=== PATIENT | female | born 1950 | race Caucasian/White ===

== ENCOUNTER 2024-06-12 06:08 | Day surgery (SDC) | payer OTHER, SELFPAY ==
[2024-06-12 06:53] VITALS: BMI 21.5
[2024-06-12 06:55] VITALS: BP 165/69
[2024-06-12] MEDS: TYLENOL 1000 MG PO (07:08)
--- NOTE | 2024-06-12 07:13 | W.SUR.PREOP ---
Pre-Operative Surgical Note
-
I have examined this patient prior to the performance of the scheduled procedure.
The patient's condition is unchanged from the time of the current History and
Physical and the patient is able to undergo the scheduled procedure.
[2024-06-12] MEDS: NORMOSOL-R 1000 IV (07:31)
--- NOTE | 2024-06-12 08:11 | W.IMMPOSTOP ---
Surgical Immed Post Op Note
-
Primary Surgeon: Bryant Merrill MD
Assisting Surgeon: None
Pre-op Diagnosis: Umbilical abscess
Post-op Diagnosis: Same
Procedure Performed: Omphalectomy
Anesthesia Type: General
Specimen / Cultures: Umbilicus
Estimated Blood Loss: 1 cc
Complications: None
Operative Findings: Infected umbilical cyst/abscess removed entirely without violation of the capsule along with the umbilical stalk. 1 mm umbilical defect repaired with a [id number] 0 PDS suture. Wound closed in layers with 3-0 Vicryl
followed by Dermabond.
--- NOTE | 2024-06-12 08:12 | OR.RPT ---
Operative Report
Operative Report
Patient Name: Kandace Muñoz
: 1950
Date of Operation: 06/12/2024
Preoperative Diagnosis: Umbilical abscess
Postoperative Diagnosis: Same
Procedure(s):
Omphalectomy
Surgeon(s):
Dr. Merrill
Infection Control Rn(s): None
Anesthesia: MAC
Estimated Blood Loss: 1 cc
Urine Output: None
Drains/Lines/Implants: None
Specimens: Umbilicus
Indication for surgery:
The patient has a symptomatic chronic umbilical draining abscess/cyst. Given its size compared to her umbilicus, the patient was counseled on omphalectomy. After discussion of risks, benefits and alternatives patient agreed to proceed with surgery.
Operative Findings: Infected umbilical cyst/abscess removed entirely without violation of the capsule along with the umbilical stalk. 1 mm umbilical defect repaired with a fcclvh-ks-afzxj 0 PDS suture. Wound closed in layers with 3-0 Vicryl
followed by Dermabond.
Details of the operation:
After successful induction of anesthesia, the patient was prepped and draped in the supine position. A team timeout was performed confirming administration of DVT prophylaxis, IV antibiotics and SCDs. The skin was anesthestized with 0.25% Marcaine
and an elliptical incision including the umbilicus and cyst was made and carried down to the fascia and was removed en bloc. The was no true hernia sac but there was a small defect which measured 1 mm. This was closed with a mnbwgl-[id number]-hmzlf 0 PDS
suture. The wound was then closed in layers with interrupted 3-0 Vicryl sutures followed by Dermabond on the skin. The patient returned to the Recovery Area in stable condition. Sponge and instrument counts were correct.
I was the attending physician and performed the procedure with no assistance. I was present for all portions of the case
Bryant Merrill MD
[2024-06-12 08:15] VITALS: BP 91/40
[2024-06-12 08:25] VITALS: BP 107/47
[2024-06-12 08:40] VITALS: BP 104/49
== END 2024-06-12 09:31 | disposition home or self-care (01) ==
LOC: SDS 06:08
PROVIDERS: ATTENDING PHYSICIAN Surgery
DX: L02.216 Cutaneous abscess of umbilicus (principal)
CPT/HCPCS: 49250; 88304

== ENCOUNTER 2025-10-21 13:29 | Emergency (ER) | payer OTHER, SELFPAY ==
[2025-10-21 13:39] VITALS: BP 161/69
[2025-10-21 14:01] LABS: Hematocrit 45.9 % (37.0-47.0); Hemoglobin 14.6 g/dL (12.0-16.0); Mean Corp Hgb Conc. 31.8 g/dL (33.0-37.0); Mean Corpuscular Volume 78.7 fL (81.0-99.0); Nucleated Red Blood Cells % 0 %; Platelet Count 185 10^3/uL (130-400); Red Cell Dist. Width 14.5 % (11.5-14.5)
[2025-10-21 14:22] LABS: ALT (SGPT) 17 U/L (0-35); AST (SGOT) 24 U/L (14-36); Albumin 4.3 g/dl (3.5-5.0); Alkaline Phosphatase 77 U/L (38-126); Blood Urea Nitrogen 18 mg/dl (7-17); Calcium 9.4 mg/dl (8.4-10.2); Carbon Dioxide 22 mmol/L (22-30); Chloride 111 mmol/L (98-107); Glucose 104 mg/dl (70-99); Potassium 4.6 mmol/L (3.5-5.1); Sodium 137 mmol/L (135-145); Total Protein 7.2 g/dl (6.3-8.2); eGFR > 60.00
[2025-10-21 14:27] LABS: Troponin I 0.015 ng/ml
--- NOTE | 2025-10-21 16:28 | ED.GENMED ---
History of Present Illness
General
Chief Complaint: Chest Pain
Source: patient and family
Exam Limitations: none
Time Seen by Provider: 10/21/25 16:13
Nursing documentation reviewed up to this point in time: agreed with
History of Present Illness
History of Present Illness:
Patient is a 75-year-old female with past medical history of COPD, asthma, heart arrhythmia ,hypertension presents to the ER for evaluation. Patient has had dull left-sided chest pain for weeks however for the past several days she has had sharp
left-sided chest pain. Patient reports laying down makes it feel better however standing worsens the symptoms. She sometimes does feel short of breath. She has had a cough for about a year.
She does have a engineering clerk Dr. Liang whom she has seen in the past for' arrhythmia.'
Phy Exam
General Physical Exam
General Presentation: no apparent distress
General age: appears stated age
General Skin: warm and dry
General Habitus: normal
General Mental: alert
General Hydration: appears well hydrated
Cardiovascular Exam
Cardiovascular Exam: normal peripheral pulses and bradycardia
Pulmonary Exam
Pulmonary Exam: lungs clear and no respiratory distress
Neurological Exam
Neurological Exam: alert and oriented x3
Musculoskeletal Exam
Musculoskeletal Exam: full ROM
Skin Exam
Skin Exam: normal color and warm/dry
Psychiatric Exam
Psychiatric Exam: normal mood/affect
Scores
Heart Score for Chest Pain Patients
STEMI patient?: Not applicable
Course
Orders/Labs/Results
Orders:
Orders
10/21/25 13:30
Electrocardiogram (*1) Urgent
Reason for Study: Chest Pain
10/21/25 13:31
EKG- Treatment ONCE
10/21/25 13:41
Cardiac Monitoring- Treatment ONCE
IV Insert/Care/Rem.- Treatment PRN
O2 Therapy [RESP] Urgent
Titrate/Wean O2 to maintain O2 sat greater than (%): 90
Special Instructions: Maintain sats >/=90%
Pulse Ox/spot Check [RESP] Urgent
Quantity: 1
Special Instructions: ON ROOM AIR
10/21/25 13:48
Complete Blood Count/With Diff Urgent
Comprehensive Metabolic Panel Urgent
Troponin I Urgent
10/21/25 16:40
Electrocardiogram (*1) Urgent
Reason for Study: Chest Pain
EKG- Treatment ONCE
10/21/25 16:42
Chest [CR Chest - 2 Views ] Urgent
Comment:
Reason For Exam: cp
10/21/25 17:05
DDimer [D-Dimer] Urgent
Troponin I Urgent
10/21/25 19:12
Vital Signs- Treatment ONCE
Frequency: Once
Abnormal Lab Results
10/21/25
13:48
RBC 5.83 H 10^6/uL
(4.20-5.40)
MCV 78.7 L fL
(81.0-99.0)
MCH 25.0 L pg
(27.0-31.0)
MCHC 31.8 L g/dL
(33.0-37.0)
Chloride 111 H mmol/L
(98-107)
BUN 18 H mg/dl
(7-17)
Glucose 104 H mg/dl
(70-99)
10/21/25 13:48
10/21/25 13:48
Vital Signs
Initial and Last Documented VS:
Initial Vital Signs
Temp Pulse Resp BP Pulse Ox
97.5 F 55 20 161/69 95
10/21/25 13:39 10/21/25 13:39 10/21/25 13:39 10/21/25 13:39 10/21/25 13:39
Last Documented Vital Signs
Temp Pulse Resp BP Pulse Ox
97.5 F 55 20 161/69 95
10/21/25 13:39 10/21/25 13:39 10/21/25 13:39 10/21/25 13:39 10/21/25 16:30
Casing Inspector consulted with Physician
Casing Inspector consulted with physician?: Yes
Name of Physician Consulted: kate
MDM/Problems Addressed
Differential Diagnosis Includes:
Not limited to ACS less likely PE
MDM/Problems Addressed:
Patient is a 75-year-old female who is brought by son. Patient has had dull chest discomfort for months however recently has had some sharp discomfort in the left chest which is what prompted patient to come to the ER. She reported mild shortness
of breath at times. Patient presents awake alert not in tachycardic patient has been bradycardic in the high 40s to 50s with frequent PVCs episodes of bigeminy. Patient has no symptoms presently. She is afebrile with normal white count stable
hemoglobin chemistries are unremarkable D-dimer negative and cardiac troponins x 2 also negative.
Patient's heart rate has run from the 40s to the 50s. She has also had episodes of PVCs and bigeminy. She is asymptomatic here in the ER during these episodes. With speaking with patient she reports her heart rate is typically in the low 40s to
50s.
With regards to cardiac chest pain and PVCs will have patient follow-up with her engineering clerk. Patient stable for discharge. She denies any current chest pain presently no shortness of breath
Chronic conditions affecting care:
Arrhythmia COPD
*Radiology
Radiology exam reviewed: radiology read reviewed
*Pulse Oximetry
SaO2: 95
Oxygen Mode of Delivery: Room air
Patient hypoxic: no
*EKG
Comparison EKG: no comparison EKG present
Heart Rate: 54
Rate: bradycardiac
Rhythm: sinus
*Critical Care Note
Total Time (30-74mins, 75-104mins- exclusive of procedures): Not Applicable
ED Attending Note
-
Portions of this chart may have been created with voice recognition software.� Occasional wrong word or��sound alike� substitutions may have occurred due to the inherent limitations of voice recognition software.
Discharge Plan
Departure
Patient Disposition: Home (Routine Discharge)
Date of Disposition: 10/21/25
Time of Disposition: 19:12
Patient with high blood pressure during this ER visit?: Yes
Condition: Fair
Covid-19: Not Applicable
Discharge Problem:
Chest pain
Instructions: Ventricular premature beats, Chest Pain NON-DHP Motor Grader Rough Grade Follow Up, BLOOD PRESSURE
Prescriptions:
No Action
enalapril maleate 10 mg Tablet
10 mg PO BID
pantoprazole 40 mg Tablet,Delayed Release (Dr/Ec)
40 mg PO DAILY
glycine 500 mg Capsule
500 mg PO PRN PRN (Reason: supplement)
fluticasone propion-salmeterol 100-50 mcg/dose Blister With Device
1 inh INHALATION BID
diclofenac sodium 1 % Gel
2 g TOPICAL PRN PRN (Reason: pain)
Rx Instructions:
Right Shoulder and Lower back
psyllium husk [Fiber (psyllium husk)] 0.4 gram Capsule
0.4 g PO DAILY
nitroglycerin 0.4 mg Tablet, Sublingual
0.4 mg SUBLINGUAL Q5-15M PRN (Reason: chest pain)
acetaminophen [acetaminophen] 325 mg tablet
650 mg PO Q6HPRN PRN (Reason: mild pain) Qty: 14 0RF
ibuprofen 600 mg tablet
600 mg PO Q6H PRN (Reason: pain) Qty: 14 0RF
Referrals:
Carlos Enrique Weiner MD [Family Provider, Internal Medicine]
Activity Restrictions/Additional Instructions:
Please follow-up with your engineering clerk for reevaluation of chest pain. In addition while you are here you had frequent premature ventricular contractions and bigeminy.
Your blood pressure was stable here in the ER. Your cardiac blood work was normal.
Please call your engineering clerk tomorrow for an appointment in the next several days and return if any worsening of symptoms.
Interventions
Interventions:
*General Assessment Last Done: 10/21/25 13:39
*Neglect/Abuse Screening Last Done: 10/21/25 13:39
*Risk Screen - Suicide (C-SSRS) Last Done: 10/21/25 13:39
Discharge Date and Time
Print Language: [place]
[2025-10-21 17:03] VITALS: BMI 23.4
[2025-10-21 17:31] LABS: D-Dimer < 0.27 ug/mlFEU (0.00-0.50)
[2025-10-21 17:51] LABS: Troponin I 0.014 ng/ml
--- NOTE | 2025-10-21 18:39 | EDRN ---
Addendum entered by Donna Urban RN 10/21/25 18:42:
This RN checked on pt and was asymptomatic of this arrhythmia.
Original Note:
Pt in bradycardia w/ bigeminal PVCs, underlying HR was <40. Shown to Penelope VU and to Chandler Urbina NP who are assigned to pt.
== END 2025-10-21 19:42 | disposition home or self-care (01) ==
LOC: EMR 13:29
PROVIDERS: Emergency Medicine; Nurse Practitioner; EMERGENCY PHYSICIAN Emergency Medicine; FAMILY PHYSICIAN Internal Medicine
DX: R07.89 Other chest pain (principal); J44.9 Chronic obstructive pulmonary disease, unspecified
CPT/HCPCS: 99283; 71046; 80053; 84484; 85025; 85379; 93005